=== PATIENT | female | born 1980 | race Caucasian/White ===

== ENCOUNTER 2016-07-31 23:35 | Emergency (ER) | payer BC, OTHER ==
[2016-07-31 23:51] VITALS: RESP 18; TEMP 97.4
--- NOTE | 2016-07-31 23:58 | ED ---
Female Urogenital HPI - General Chief complaint: Vaginal Bleeding Stated complaint: Vaginal bleeding Time Seen by Provider: 07/31/16 23:42 Source: patient Mode of arrival: EMS Limitations: no limitations - History of Present Illness Initial comments: This patient is a 36-year-old woman who presents here as a transfer from [facility]. She had gone there earlier today with complaint of some vaginal bleeding and pelvic pain, that had started in the morning. The patient reported that her last missed her period was in May, and that she did have a positive test at that time. At the other hospital, she was found to have a positive beta hCG at 3500 and was sent here to have an ultrasound to rule out ectopic . It is reported to us that the patient's pelvic exam reveals a closed cervix with a small amount of dark blood but no active bleeding. Patient states that she sees Dr. Wong. She is currently ( Ab2). Patient states that she has not had any further bleeding, and that the pelvic discomfort is very mild at the moment. MD Complaint: vaginal bleeding, pelvic pain -: hour(s) Location: suprapubic, LLQ, RLQ Radiation: non-radiating Severity: mild Quality: cramping Consistency: constant Improves with: none Worsens with: none Last Menstrual Period: 05/20/16 Associated Symptoms: denies other symptoms - Related Data Home Medications Medication Instructions Recorded Confirmed Loratadine [Claritin] 5 mg PO DAILY 05/17/14 03/30/15 Allergies Allergy/AdvReac Type Severity Reaction Status Date / Time dextrose [From Metamucil] Allergy Dyspnea Verified 07/31/16 23:50 psyllium husk Allergy Dyspnea Verified 07/31/16 23:50 [From Metamucil] psyllium seed Allergy Dyspnea Verified 07/31/16 23:50 [From Metamucil] sucrose [From Metamucil] Allergy Dyspnea Verified 07/31/16 23:50 Review of Systems ROS Statement: Those systems with pertinent positive or pertinent negative responses have been documented in the HPI. ROS Other: All systems not noted in ROS Statement are negative. Constitutional: Denies: fever, chills Respiratory: Denies: cough, dyspnea Cardiovascular: Denies: chest pain, palpitations, edema, syncope Gastrointestinal: Reports: as per HPI, abdominal pain. Denies: vomiting, diarrhea Genitourinary: Reports: abnormal menses. Denies: dysuria, hematuria, discharge Musculoskeletal: Denies: back pain Skin: Denies: rash Neurological: Denies: headache Hematological/Lymphatic: Denies: easy bleeding Past Medical History Past Medical History: No Reported History Additional Past Medical History / Comment(s): gestational diabetes History of Any Multi-Drug Resistant Organisms: MRSA Past Surgical History: Cholecystectomy Past Anesthesia/Blood Transfusion Reactions: No Reported Reaction Past Psychological History: Depression Smoking Status: Current every day smoker Past Alcohol Use History: None Reported Past Drug Use History: None Reported - Past Family History Mother Family Medical History: Diabetes Mellitus General Exam Limitations: no limitations General appearance: alert, in no apparent distress Head exam: Present: atraumatic, normocephalic, normal inspection Eye exam: Present: normal appearance. Absent: scleral icterus, conjunctival injection Respiratory exam: Present: normal lung sounds bilaterally. Absent: rhonchi, stridor Cardiovascular Exam: Present: regular rate, normal rhythm, systolic murmur ( Grade 1/6). Absent: diastolic murmur, rubs, gallop GI/Abdominal exam: Present: soft. Absent: distended, tenderness, guarding, rebound, mass Extremities exam: Present: normal inspection, normal capillary refill. Absent: pedal edema, calf tenderness Back exam: Absent: CVA tenderness (R), CVA tenderness (L) Neurological exam: Present: alert Skin exam: Present: warm, dry, intact, normal color. Absent: rash Course Vital Signs 07/31/16 23:35 Temperature 97.4 F L Pulse Rate 67 Respiratory 18 Rate Blood Pressure 137/60 O2 Sat by Pulse 98 Oximetry Disposition Clinical Impression: Threatened Disposition: HOME SELF-CARE Condition: Fair Instructions: Threatened Miscarriage (ED) Referrals: Azeem Soria MD [Primary Care Provider] - 1-2 days David Wong DO [Doctor of Osteopathic Medicine] - 1-2 days
--- NOTE | 2016-08-01 01:04 | US ---
08/01/16 00:33 - [facility] - Study: US OB <=14 wks transvag 08/01/16 00:34 - [facility] Alia Peng/id:[id number] said: EXAMINATION TYPE: US OB <=14 wks transvag DATE OF EXAM: 08/01/2016 12:28 AM COMPARISON: NONE CLINICAL HISTORY: Pain/bleeding, R/O ectopic . EXAM PERFORMED: Transvaginal (TV) and Transabdominal (TA) EXAM MEASUREMENTS: GESTATIONAL AGE / DATING Physician Established: Not established Dates by LMP: Unknown Dates by First Scan: No previous Dates by Current Scan for: (7 weeks/6 days) EDC: 03/14/2017 MATERNAL ANATOMY Uterus: 8.7 x 6.8 x 6.9 cm Right Ovary: 2.5 x 1.8 x 1.8 cm Left Ovary: 2.8 x 1.8 x 1.5 cm Post CDS / Adnexa: wnl Presence of free fluid: No Presence of corpus luteal cyst: Yes, right ovary measuring 1.2 x 1.2 x 1. 4 cm Presence of subchorionic bleed: Yes, to the right of the gestational sac measuring 2.5 x 1.1 x 1.8 cm GESTATION / SURVEY CRL: 1.5 cm (7 weeks/6 days) Yolk Sac (normal less than 6mm): 3 mm Heart Rate: 160 bpm Rhythm: Normal IUP: Viable IUP Date of LMP: Unknown Beta HcG (if available): Not available at time of exam Single, viable IUP with an EMORY of 03/14/2017 on this exam. Probable subchorionic bleed.
[2016-08-01 02:02] VITALS: BP 120/57; PULSE 76
== END 2016-08-01 02:02 | disposition home or self-care (01) ==
LOC: EC 23:35
DX: O20.0 Threatened abortion (principal); O99.330 Smoking (tobacco) complicating pregnancy, unspecified trimester; F17.200 Nicotine dependence, unspecified, uncomplicated; Z91.048 Other nonmedicinal substance allergy status; Z90.49 Acquired absence of other specified parts of digestive tract; Z88.8 Allergy status to other drugs, medicaments and biological substances; Z79.899 Other long term (current) drug therapy; Z3A.00 Weeks of gestation of pregnancy not specified
CPT/HCPCS: 76801; 76817; 99284

== ENCOUNTER 2016-08-05 00:12 | Emergency (ER) | payer OTHER ==
[2016-08-05 00:19] VITALS: RESP 18
--- NOTE | 2016-08-05 01:43 | ED ---
Female Urogenital HPI - General Chief complaint: Vaginal Bleeding Stated complaint: vaginal bleeding, 8 wks preg Time Seen by Provider: 08/05/16 00:48 Source: patient, RN notes reviewed Mode of arrival: ambulatory Limitations: no limitations - History of Present Illness Initial comments: Patient is a 36-year-old female presents to the emergency room for evaluation of vaginal bleeding. patient states she is about 8 weeks . patient states she was here a few weeks ago for vaginal bleeding. patient states she was told she had a hemorrhage. patient states she began with spotting last night. patient states she began spotting today. patient states she's past few small clots. patient is . patient states she's had 2 full term births, one miscarriage and one stillbirth. patient states she has an appointment with dr. aguilar not until august 21. patient has pain or burning during urination, trouble urinating or blood in urine. patient states she's having bilateral left lower quadrant and right lower quadrant discomfort. patient has nausea vomiting. patient denies headache or dizziness. patient has chest pain or shortness of breath. - Related Data Previous Rx's Medication Instructions Recorded Nitrofurantoin Monohyd/M-Cryst 100 mg PO Q12HR 7 Days 08/05/16 [Macrobid] Jzl-Dvuv-Kljxq Acid 1 each PO DAILY #100 cap 08/05/16 [-U Capsule (formulary)] Allergies Allergy/AdvReac Type Severity Reaction Status Date / Time adhesive tape Allergy Unknown Verified 08/05/16 00:19 dextrose [From Metamucil] Allergy Dyspnea Verified 08/05/16 00:19 psyllium husk Allergy Dyspnea Verified 08/05/16 00:19 [From Metamucil] psyllium seed Allergy Dyspnea Verified 08/05/16 00:19 [From Metamucil] sucrose [From Metamucil] Allergy Dyspnea Verified 08/05/16 00:19 Review of Systems ROS Statement: Those systems with pertinent positive or pertinent negative responses have been documented in the HPI. ROS Other: All systems not noted in ROS Statement are negative. Past Medical History Past Medical History: No Reported History Additional Past Medical History / Comment(s): gestational diabetes History of Any Multi-Drug Resistant Organisms: MRSA Date of last positivie culture/infection: 11/2015 MDRO Source:: Thigh Past Surgical History: Cholecystectomy Past Anesthesia/Blood Transfusion Reactions: No Reported Reaction Past Psychological History: Depression Smoking Status: Current every day smoker Past Alcohol Use History: None Reported Past Drug Use History: None Reported - Past Family History Mother Family Medical History: Diabetes Mellitus General Exam - General Exam Comments Initial Comments: sitting in exam room, no distress. Limitations: no limitations General appearance: alert, in no apparent distress Head exam: Present: atraumatic, normocephalic, normal inspection Eye exam: Present: normal appearance ENT exam: Present: normal exam Neck exam: Present: normal inspection Respiratory exam: Present: normal lung sounds bilaterally. Absent: respiratory distress Cardiovascular Exam: Present: regular rate, normal rhythm, normal heart sounds GI/Abdominal exam: Present: soft, normal bowel sounds. Absent: distended, tenderness, guarding, rebound, rigid External exam: Present: normal external exam Speculum exam: Present: vaginal bleeding By manual exam: Present: normal by manual exam Extremities exam: Present: normal inspection Back exam: Present: normal inspection Neurological exam: Present: alert, oriented X3, CN II-XII intact, normal gait Psychiatric exam: Present: normal affect, normal mood Skin exam: Present: warm, dry, intact, normal color. Absent: rash Course Vital Signs 08/05/16 08/05/16 00:15 03:32 Temperature 98.0 F 97.3 F L Pulse Rate 86 82 Respiratory 18 18 Rate Blood Pressure 128/59 112/73 O2 Sat by Pulse 100 98 Oximetry Medical Decision Making - Medical Decision Making patient is a 36 presents emergency room for evaluation of vaginal bleeding. patient states about 8 weeks . patient's blood type is o positive. Urinalysis suspicious for urinary tract infection. Patient was on antibiotics. ultrasound showed a viable with small subchorionic hemorrhage. Advised patient to follow-up with [facility]. Patient states she understands everything that was discussed with her. Return parameters discussed. Case discussed with Dr. Castellanos. - Lab Data Lab Results 08/05/16 08/05/16 08/05/16 Range/Units 01:12 01:12 02:45 HCG, Quant 73757.5 mIU/mL Urine Color Red Urine Appearance Cloudy H (Clear) Urine pH 5.5 (5.0-8.0) Ur Specific Peerless 1.016 (1.001-1.035) Urine Protein 1+ H (Negative) Urine Glucose (UA) Negative (Negative) Urine Ketones Negative (Negative) Urine Blood Large H (Negative) Urine Nitrite Negative (Negative) Urine Bilirubin Negative (Negative) Urine Urobilinogen <2.0 (<2.0) mg/dL Ur Leukocyte Esterase Moderate H (Negative) Urine RBC >182 H (0-5) /hpf Urine WBC >182 H (0-5) /hpf Ur Squamous Epith Cells 5 H (0-4) /hpf Urine Bacteria Rare H (None) /hpf Urine Mucus Few H (None) /hpf Blood Type O Positive Blood Type Recheck No - Radiology Data Radiology results: report reviewed, image reviewed Disposition Clinical Impression: Urinary tract infection, Threatened miscarriage Disposition: HOME SELF-CARE Condition: Good Instructions: Threatened Miscarriage (ED), Urinary Tract Infection in (ED) Additional Instructions: Take antibiotics as directed. Refrain from heavy lifting or sexual activity for the next 7-10 days. Please follow-up with [facility]. If any new symptom arises or symptoms worsen, return to ER as soon as possible. Prescriptions: Nitrofurantoin Monohyd/M-Cryst [Macrobid] 100 mg PO Q12HR 7 Days Vjm-Zsah-Vsesl Acid [-U Capsule (formulary)] 1 each PO DAILY # 100 cap Referrals: Azeem Soria MD [Primary Care Provider] - 1-2 days David Wong DO [Doctor of Osteopathic Medicine] - 1-2 days Time of Disposition: 03:17
--- NOTE | 2016-08-05 02:53 | US ---
EXAM: US First Trimester, Transabdominal CLINICAL HISTORY: Reason: Pain TECHNIQUE: Real-time transabdominal obstetrical ultrasound of the maternal pelvis and a first trimester with image documentation. COMPARISON: Recent 08/01/16 ultrasound. FINDINGS: Gestation: There is again a single live intrauterine gestation, with average ultrasound age of 8 weeks 2 days +/- 0 weeks 5 days (EMORY 03/15/17), which correlates with previous dating. cardiac activity seen at 174 bpm. Placenta/amniotic fluid: There is again suggestion of a small subchorionic hemorrhage, currently measured at 1.9 x 1.4 x 1.1 cm on transabdominal imaging, was previously measured at 2.5 x 1.8 x 1.0 cm. Uterus/cervix: Uterus was measured at 9.7 x 7.7 x 7.0 cm. No myometrial mass. Ovaries: Right ovary measures 2.6 x 2.0 x 1.8 cm and may again contain a corpus luteal cyst that was measured at 1.4 x 1.3 x 1.3 cm (previously measured at 1.4 x 1.2 x 1.2 cm). Left ovary measures 3.2 x 1.9 x 1.7 cm. Free fluid: No free fluid. IMPRESSION: Essentially stable first trimester pelvic ultrasound including probable small subchorionic hemorrhage, with single live intrauterine gestation, as above.
[2016-08-05 03:15] LABS: Appearance,Urine Cloudy (Clear); Bacteria,Urine Rare /hpf; Bilirubin,Urine Negative (Negative); Glucose,Urine (UA) Negative (Negative); Ketones,Urine Negative (Negative); Leukocyte Esterase,Urine Moderate (Negative); Mucus,Urine Few /hpf; Nitrite,Urine Negative (Negative); PH, Urine 5.5 (5.0-8.0); Particle Count 19400; Protein,Urine 1+ (Negative); RBC,Urine >182 /hpf (0-5); Specific Gravity,Urine 1.016 (1.001-1.035); Squamous Epithelial Cell,Urine 5 /hpf (0-4); UA Billing (MACRO vs. MICRO) MICRO; Urobilinogen,Urine <2.0 mg/dL (<2.0); WBC,Urine >182 /hpf (0-5)
[2016-08-05 03:32] VITALS: BP 112/73; PULSE 82; TEMP 97.3
== END 2016-08-05 03:33 | disposition home or self-care (01) ==
LOC: EC 00:12
DX: O20.0 Threatened abortion (principal); O23.41 Unspecified infection of urinary tract in pregnancy, first trimester; O99.331 Smoking (tobacco) complicating pregnancy, first trimester; F17.200 Nicotine dependence, unspecified, uncomplicated; Z90.49 Acquired absence of other specified parts of digestive tract; Z91.048 Other nonmedicinal substance allergy status; Z91.018 Allergy to other foods; Z3A.08 8 weeks gestation of pregnancy
CPT/HCPCS: 36415; 76801; 81001; 84702; 86900; 86901; 99284

== ENCOUNTER → 2016-08-21 | Outpatient (CLI) | payer OTHER ==
[2016-08-21 12:00] LABS: CH 31.1; CHCM 34.2; HCT 35.3 % (34.0-46.0); HDW 2.61; HGB 11.8 gm/dL (11.4-16.0); MCH 30.5 pg (25.0-35.0); MCHC 33.3 g/dL (31.0-37.0); MCV 91.4 fL (80.0-100.0); RBC 3.86 m/uL (3.80-5.40); RDW 14.1 % (11.5-15.5)
[2016-08-21 12:26] LABS: Appearance,Urine Clear (Clear); Bacteria,Urine Rare /hpf; Bilirubin,Urine Negative (Negative); Glucose,Urine (UA) Negative (Negative); Ketones,Urine Negative (Negative); Leukocyte Esterase,Urine Trace (Negative); Mucus,Urine Rare /hpf; Nitrite,Urine Negative (Negative); Particle Count 4357; Protein,Urine Trace (Negative); RBC,Urine 2 /hpf (0-5); Specific Gravity,Urine 1.022 (1.001-1.035); Squamous Epithelial Cell,Urine 2 /hpf (0-4); UA Billing (MACRO vs. MICRO) MICRO; Urobilinogen,Urine <2.0 mg/dL (<2.0); WBC,Urine 1 /hpf (0-5)
[2016-08-21 12:52] LABS: Glucose 100 mg/dL (74-99); Non-African American GFR(MDRD) >60 (>60 ml/min/1.73 sqM)
[2016-08-21 13:24] LABS: Hepatitis B Surface Ag Index 0.06
[2016-08-22 06:29] LABS: Toxoplasma Antibody (IgG) <3.0 IU/mL (<7.2)
[2016-08-22 07:37] LABS: HIV-1/HIV-2 Ab Screen NONREAC (NON REAC)
== END | disposition home or self-care (01) ==
LOC: LABWHC1 11:42
PROVIDERS: ATTEND Obstetrics & Gynecology
DX: Z34.81 Encounter for supervision of other normal pregnancy, first trimester (principal); Z3A.00 Weeks of gestation of pregnancy not specified
CPT/HCPCS: 36415; 81001; 82565; 82947; 85027; 86762; 86777; 86778; 86780; 86850; 86900; 86901; 87086; 87340; 87389

== ENCOUNTER → 2016-11-29 | Outpatient (CLI) | payer OTHER ==
[2016-11-29 11:53] LABS: Glucose 3 Hour, Gest 142 mg/dL
== END | disposition home or self-care (01) ==
LOC: LABWHC1 07:23
PROVIDERS: ATTEND Obstetrics & Gynecology
DX: O99.810 Abnormal glucose complicating pregnancy (principal); Z3A.00 Weeks of gestation of pregnancy not specified
CPT/HCPCS: 36415; 82951; 82952

== ENCOUNTER → 2017-09-19 | Outpatient (CLI) | payer OTHER ==
--- NOTE | 2017-09-19 09:45 | CT ---
EXAMINATION TYPE: CT brain wo/w con DATE OF EXAM: 09/19/2017 COMPARISON: NONE HISTORY: Headache, unusual duration CT DLP: 2054 mGycm Automated Exposure Control for Dose Reduction was Utilized. TECHNIQUE: CT scan of the head is performed with IV contrast.,CT scan of the head is performed withou t and with without and with IV Contrast, patient injected with 100 ml mL of Isovue 300. FINDINGS: Noncontrast images show no acute intracranial hemorrhage or midline shift. The ventricles and sulci are within normal limits in size. Postcontrast images show no suspicious enhancing intrapa renchymal mass. No suspicious extra-axial fluid collection. Orbits are symmetric. Major vasculature a ppears patent. The globes are intact and the visualized sinuses are clear. IMPRESSION: Unremarkable contrast enhanced head CT examination. No evidence of intracranial enhancing mass, midline shift or mass effect.
== END | disposition home or self-care (01) ==
LOC: RADCTMAIN 08:48
PROVIDERS: ATTEND Internal Medicine Hematology & Oncology
DX: R51 Headache (principal)
CPT/HCPCS: 70470; Q9967

== ENCOUNTER → 2019-10-08 | Outpatient (CLI) | payer OTHER ==
--- NOTE | 2019-10-08 11:35 | US ---
EXAMINATION TYPE: US pelvic complete DATE OF EXAM: 10/08/2019 COMPARISON: NONE CLINICAL HISTORY: N92.0 Excessive and frequent menstruation with reg. Heavy menses TECHNIQUE: Transabdominal (TA). Transabdominal sonographic images of the pelvis were acquired. EXAM MEASUREMENTS: Uterus: 9.4 x 4.8 x 6.2 cm Endometrial Stripe: .6 cm Right Ovary: 3.4 x 3.4 x 3.4 cm Left Ovary: 3.6 x 2.1 x 3.2 cm 1. Uterus: Retroverted wnl 2. Endometrium: wnl 3. Right Ovary: Cystic area 2.8 x 3.0 x 2.8 cm. 4. Left Ovary: wnl 5. Bilateral Adnexa: wnl 6. Posterior cul-de-sac: wnl IMPRESSION: 1. There is a 3 x 2.8 cm simple appearing cyst in the right ovary. Follow-up to resolution recommende d follow-up study in 6-8 weeks.
== END | disposition home or self-care (01) ==
LOC: RADUSWWP 11:04
PROVIDERS: ATTEND Obstetrics & Gynecology
DX: N83.201 Unspecified ovarian cyst, right side (principal)
CPT/HCPCS: 76856

== ENCOUNTER → 2019-12-04 | Day surgery (SDC) | payer OTHER ==
[2019-12-01 15:33] VITALS: BMI 34.7
--- NOTE | 2019-12-03 07:55 | P.HPOB ---
History of Present Illness H&P Date: 12/03/19 Chief Complaint: Heavy menstrual bleeding Patient is a 39-year-old female with heavy vaginal bleeding. She relates this happens every month and it is severely limiting to her lifestyle she is unable to function well while she is having heavy bleeding. She is also a smoker and over the age of 34 so hormones are unable to be used to assist in control. We did discuss options including IUDs or other medications but she has declined those and desires a more permanent solution. She is scheduled for a D&C with hysteroscopy and NovaSure ablation. Risks/benefits/alternatives to this procedure were discussed with the patient in detail and all questions were answered for her prior to proceeding to the operating room. Past Medical History Past Medical History: Blood Disorder, GERD/Reflux, Sleep Apnea/CPAP/BIPAP Additional Past Medical History / Comment(s): gestational diabetes, anticardiolipin antibody, positive + LEA, lupus anticoagulation, swelling leg, headaches History of Any Multi-Drug Resistant Organisms: MRSA Date of last positivie culture/infection: 11/2015 MDRO Source:: Thigh Past Surgical History: Section, Cholecystectomy Additional Past Surgical History / Comment(s): Surgery for right-sided clubfoot at 2 months of age, Past Anesthesia/Blood Transfusion Reactions: No Reported Reaction Smoking Status: Current every day smoker - Past Family History Mother Family Medical History: COPD, Diabetes Mellitus Father Family Medical History: Cancer Additional Family Medical History / Comment(s): brain cancer Brother(s) Additional Family Medical History / Comment(s): from meningitis Medications and Allergies Home Medications Medication Instructions Recorded Confirmed Type Ibuprofen [Motrin] 600 mg PO Q6HR PRN #30 tab 03/09/17 12/01/19 Rx Aspirin 325 mg PO DAILY 12/01/19 12/01/19 History Butalbital/Acetaminophen/Caff 1 tab PO DAILY PRN 12/01/19 12/01/19 History Cholecalciferol [Vitamin D3 (25 5,000 unit PO DAILY 12/01/19 12/01/19 History Mcg = 1000 Iu)] Loratadine 10 mg PO DAILY 12/01/19 12/01/19 History hydroCHLOROthiazide 25 mg PO DAILY 12/01/19 12/01/19 History Allergies Allergy/AdvReac Type Severity Reaction Status Date / Time adhesive tape Allergy Unknown Verified 12/01/19 14:48 dextrose [From Metamucil] Allergy Dyspnea Verified 12/01/19 14:48 psyllium husk Allergy Dyspnea Verified 12/01/19 14:48 [From Metamucil] psyllium seed Allergy Dyspnea Verified 12/01/19 14:48 [From Metamucil] sucrose [From Metamucil] Allergy Dyspnea Verified 12/01/19 14:48 surgical drap Allergy Rash/Hives Uncoded 12/01/19 14:49 Exam Osteopathic Statement: *. No significant issues noted on an osteopathic structural exam other than those noted in the History and Physical/Consult. - OBG Physical Exam Breast: both: normal (no masses) Abdomen: bowel sounds normal, no diffuse tenderness, no bruit present, no guarding noted, no hepatomegaly, no splenomegaly, no mass Vulva: both: normal Vagina: normal moisture, no discharge Cervix: no lesion, no discharge Uterus: normal size, normal contour Adnexa: both: normal Anus/Rectum: normal perianal skin, no rectal mass, no hemorrhoids, heme negative
[~2019-12-04] MED LIST: DEXAMETHASONE SOD PHOSPHATE 10 MG/ML 1 ML VIAL IV ONE; HYDROmorphone 0.5 MG/0.5 ML SYRINGE IVP PRN; KETOROLAC 15 MG/ML 1 ML VIAL ONE; LACTATED RINGERS 1,000 ML IV SCH; LIDOCAINE 1% INJ 10MG/ML (20 ML MDV) ONE; MIDAZOLAM 2 MG/2 ML VIAL IV PRN; MIDAZOLAM 2 MG/2 ML VIAL ONE; ONDANSETRON 4 MG/2 ML VIAL IVP ONE; PROPOFOL 10 MG/ML 20 ML VIAL IV ONE; Pre Op ABX Message 1 EACH MISC MISCELLANE ONE; SCOPOLAMINE 1.5MG/72HR PATCH TRANSDERM ONE; fentaNYL (PF) 50 MCG/ML 2 ML AMP ONE
--- NOTE | 2019-12-04 08:00 | P.OP ---
Date of Procedure: 12/04/19 Preoperative Diagnosis: Menorrhagia Postoperative Diagnosis: Same Procedure(s) Performed: D&C with hysteroscopy NovaSure ablation Anesthesia: FROILAN Surgeon: David Wong Estimated Blood Loss (ml): 3 Pathology: other (Uterine curettings) Condition: stable Disposition: same day Operative Findings: Pathology sent. Fundal region on the left only partially ablated Description of Procedure: Patient was taken to the operating suite where a general anesthetic was found be adequate. She was prepped and draped in normal sterile fashion placed in dorsal lithotomy position. Initially a speculum was inserted in vagina and anterior lip of cervix identified and grasped with a house clamp. Grade 1 prolapse was noted and a sharply retroverted uterus is also noted. Cervix was then dilated and sounded to 10 cm. Once this was completed camera was inserted no specific pathologies noted therefore sharp curettings of endometrium were obtained and sent to pathology for evaluation. Once was completed NovaSure system was brought in with a length of 5 and a width of 2.6 it was tested and once it passes patency test it was enabled and burn for 97 seconds. Conclusion the burn camera was reinserted excellent burn was noted on the right side of the uterus with partial ablation felt to be done on the left side but will have to reevaluate moving forward this may very well be enough for her symptoms. Once this completed all incidents removed. Sponge, lap, needle counts were all correct 2. Patient was then taken to the recovery room in stable and satisfactory condition. Plan - Discharge Summary Discharge Rx Participant: No New Discharge Prescriptions: New Ibuprofen [Motrin] 600 mg PO Q6HR PRN #30 tab PRN Reason: Pain No Action Ibuprofen [Motrin] 600 mg PO Q6HR PRN #30 tab PRN Reason: Pain hydroCHLOROthiazide 25 mg PO DAILY Cholecalciferol [Vitamin D3 (25 Mcg = 1000 Iu)] 5,000 unit PO DAILY Aspirin 325 mg PO DAILY Loratadine 10 mg PO DAILY Butalbital/Acetaminophen/Caff 1 tab PO DAILY PRN PRN Reason: headaches Discharge Medication List Ibuprofen [Motrin] 600 mg PO Q6HR PRN #30 tab 03/09/17 [Rx] Aspirin 325 mg PO DAILY 12/01/19 [History] Butalbital/Acetaminophen/Caff 1 tab PO DAILY PRN 12/01/19 [History] Cholecalciferol [Vitamin D3 (25 Mcg = 1000 Iu)] 5,000 unit PO DAILY 12/01/19 [History] Loratadine 10 mg PO DAILY 12/01/19 [History] hydroCHLOROthiazide 25 mg PO DAILY 12/01/19 [History] Ibuprofen [Motrin] 600 mg PO Q6HR PRN #30 tab 12/04/19 [Rx] Follow up Appointment(s)/Referral(s): David Wong DO [Doctor of Osteopathic Medicine] - 1 Week Activity/Diet/Wound Care/Special Instructions: No heavy lifting, limit stairs and driving, and pelvic rest. If any high temperatures, heavy bleeding, or severe pain call my Discharge Disposition: HOME SELF-CARE
[2019-12-04 08:11] VITALS: TEMP 97.4
[2019-12-04 08:17] VITALS: RESP 16
[2019-12-04 09:14] VITALS: BP 123/81; PULSE 72
== END | disposition home or self-care (01) ==
LOC: OR 06:27
PROVIDERS: ATTEND Obstetrics & Gynecology
DX: N92.0 Excessive and frequent menstruation with regular cycle (principal); D68.62 Lupus anticoagulant syndrome; K21.9 Gastro-esophageal reflux disease without esophagitis; F17.200 Nicotine dependence, unspecified, uncomplicated; G47.30 Sleep apnea, unspecified; Z86.32 Personal history of gestational diabetes; Z86.14 Personal history of Methicillin resistant Staphylococcus aureus infection; Z90.49 Acquired absence of other specified parts of digestive tract; Z98.890 Other specified postprocedural states; Z82.5 Family history of asthma and other chronic lower respiratory diseases; Z83.3 Family history of diabetes mellitus; Z80.8 Family history of malignant neoplasm of other organs or systems; Z82.0 Family history of epilepsy and other diseases of the nervous system; Z79.899 Other long term (current) drug therapy; Z88.8 Allergy status to other drugs, medicaments and biological substances; Z91.09 Other allergy status, other than to drugs and biological substances
CPT/HCPCS: 81025; 88305; 84132; 58563; J2250; J1100; J2405; J2001; J3010; J1885; J2704